=== PATIENT | female | born 1990 | race Caucasian/White ===

== ENCOUNTER → 2022-12-22 | Outpatient (CLI) | payer OTHER ==
--- NOTE | 2022-12-22 16:01 | XR ---
EXAMINATION TYPE: XR nasal bone INDICATION: Patient age:Female; 32 years old; Reason for study: [id number] NASAL INJURY; [facility]. COMPARISON: Skull radiograph 06/04/2011 TECHNIQUE: Nasal bridge was evaluated and three views. FINDINGS: The anterior nasal spine has a normal radiographic appearance as well. The nasal septum projects a midline appearance. Limited evaluation of the paranasal sinuses demonstrates normal aeration. IMPRESSION: No convincing evidence for nasal bone fracture. Consider CT maxillofacial if clinically warranted.
== END | disposition home or self-care (01) ==
LOC: RADXRYALE 15:07
PROVIDERS: ATTEND Physician Assistant Medical
DX: J34.89 Other specified disorders of nose and nasal sinuses (principal); S09.92XA Unspecified injury of nose, initial encounter
CPT/HCPCS: 70160